=== PATIENT | male | born 1985 | race Caucasian/White ===

== ENCOUNTER 2016-06-08 06:49 | Emergency (ER) | payer OTHER ==
[~2016-06-08] VITALS: Ht 182.9 cm; Wt 61.4 kg
[2016-06-08 07:54] LABS: BASOPHILS # (AUTO) 0.01 K/uL (0.00-0.20); BASOPHILS % (AUTO) 0.2 % (0.0-2.0); EOSINOPHILS # (AUTO) 0.03 K/uL (0.00-0.70); EOSINOPHILS % (AUTO) 0.35 % (1.0-6.0); HEMATOCRIT 42.5 % (41-53); HEMOGLOBIN 14.4 g/dL (13.5-17.5); MEAN CORPUSCULAR HEMOGLOBIN 29.9 pg (26.0-34.0); MEAN CORPUSCULAR HGB CONC 33.8 G/dL (31.0-37.0); MEAN CORPUSCULAR VOLUME 88 fL (80-100); MONOCYTES # (AUTO) 0.4 K/uL (0.1-1.0); MONOCYTES % (AUTO) 4.9 % (2.0-9.0); NEUTROPHILS # (AUTO) 5.9 K/uL (1.8-7.7); NEUTROPHILS % (AUTO) 80.6 % (40.0-70.0); PLATELET COUNT (AUTO) 207 K/uL (150-450); RED BLOOD CELL COUNT(AUTO) 4.81 MIL/uL (4.50-5.90); RED CELL DISTRIBUTION WIDTH 12.7 % (11.5-14.5); WHITE BLOOD COUNT (AUTO) 7.4 K/uL (4.5-11.0)
[2016-06-08 08:04] LABS: ANION GAP 10 mmol/L (8-16); CALCIUM, TOTAL 8.5 mg/dL (8.8-10.5); CARBON DIOXIDE 29 mmol/L (22-29); CHLORIDE 104 mmol/L (98-107); CREATININE 1.13 mg/dL (0.60-1.30); GLOMERULAR FILTR. RATE CALC > 60 mL/min (>60); POTASSIUM 3.9 mmol/L (3.5-5.1); SODIUM SERUM 143 mmol/L (136-145); UREA NITROGEN, BLOOD 9 mg/dL (7-18)
[2016-06-08 08:10] LABS: ALANINE AMINOTRANSFERASE 23 U/L (12-78); ALBUMIN 4.5 g/dL (3.4-5.0); ASPARTATE AMINOTRANSFERASE 15 U/L (15-37); BILIRUBIN,TOTAL 0.9 mg/dL (0.1-1.0); TOTAL PROTEIN, SERUM 7.9 g/dL (6.4-8.2)
[2016-06-08] MEDS ORDERED: LORazepam 2 MG TABLET PO ONE (10:30)
[2016-06-08] MEDS ORDERED: HALOPERIDOL 5 MG TABLET PO ONE (10:30)
[2016-06-08 11:30] VITALS: BP 119/76
== END 2016-06-08 11:43 | disposition home or self-care (01) ==
LOC: EMS 06:50
DX: F41.9 Anxiety disorder, unspecified (principal); F12.10 Cannabis abuse, uncomplicated
CPT/HCPCS: 36415; 80053; 80307; 85025; 99284; G0480

== ENCOUNTER 2017-03-25 13:33 | Emergency (ER) | payer OTHER ==
[~2017-03-25] VITALS: Ht 180.3 cm; Wt 65.9 kg
[2017-03-25 14:18] LABS: GLUCOSE,POINT OF CARE 87 MG/DL (70-110)
[2017-03-25 16:35] LABS: BASOPHILS % (AUTO) 0.3 % (0.0-2.0); EOSINOPHILS % (AUTO) 1.2 % (1.0-6.0); HEMATOCRIT 44.1 % (41-53); HEMOGLOBIN 15.2 g/dL (13.5-17.5); LYMPHOCYTES % (AUTO) 28.4 % (22.0-44.0); MEAN CORPUSCULAR HEMOGLOBIN 30.2 pg (26.0-34.0); MEAN CORPUSCULAR HGB CONC 34.5 G/dL (31.0-37.0); MEAN CORPUSCULAR VOLUME 88 fL (80-100); MONOCYTES # (AUTO) 0.5 K/uL (0.1-1.0); MONOCYTES % (AUTO) 7.5 % (2.0-9.0); NEUTROPHILS # (AUTO) 4.4 K/uL (1.8-7.7); NEUTROPHILS % (AUTO) 62.6 % (40.0-70.0); PLATELET COUNT (AUTO) 214 K/uL (150-450); RED BLOOD CELL COUNT(AUTO) 5.02 MIL/uL (4.50-5.90); RED CELL DISTRIBUTION WIDTH 12.7 % (11.5-14.5)
[2017-03-25 16:51] LABS: ANION GAP 9 mmol/L (8-16); CALCIUM, TOTAL 9.2 mg/dL (8.8-10.5); CARBON DIOXIDE 30 mmol/L (22-29); CHLORIDE 104 mmol/L (98-107); CREATININE 0.91 mg/dL (0.60-1.30); GLOMERULAR FILTR. RATE CALC > 60 mL/min (>60); GLUCOSE,RANDOM 90 mg/dL (70-110); POTASSIUM 4.3 mmol/L (3.5-5.1); SODIUM SERUM 143 mmol/L (136-145); UREA NITROGEN, BLOOD 12 mg/dL (7-18)
[2017-03-25 16:57] LABS: ALANINE AMINOTRANSFERASE 23 U/L (12-78); ALBUMIN 4.2 g/dL (3.4-5.0); ALKALINE PHOSPHATASE 46 U/L (46-116); ASPARTATE AMINOTRANSFERASE 17 U/L (15-37); BILIRUBIN,TOTAL 1.1 mg/dL (0.1-1.0); TOTAL PROTEIN, SERUM 7.9 g/dL (6.4-8.2)
[2017-03-25 19:36] VITALS: BP 115/65
== END 2017-03-25 19:43 | disposition home or self-care (01) ==
LOC: EMS 13:36
DX: J11.1 Influenza due to unidentified influenza virus with other respiratory manifestations (principal); F12.90 Cannabis use, unspecified, uncomplicated
CPT/HCPCS: 71046; 82962; 99285

== ENCOUNTER 2017-06-10 21:20 | Inpatient (IN) | payer MEDICAID, OTHER ==
[~2017-06-10] VITALS: Ht 180.3 cm; Wt 63.8 kg
[2017-06-10 21:56] LABS: BASOPHILS % (AUTO) 0.4 % (0.0-2.0); EOSINOPHILS % (AUTO) 1.1 % (1.0-6.0); HEMATOCRIT 44.9 % (41-53); HEMOGLOBIN 15.1 g/dL (13.5-17.5); LYMPHOCYTES # (AUTO) 2.3 K/uL (1.0-4.8); LYMPHOCYTES % (AUTO) 28.9 % (22.0-44.0); MEAN CORPUSCULAR HEMOGLOBIN 30.3 pg (26.0-34.0); MEAN CORPUSCULAR HGB CONC 33.7 G/dL (31.0-37.0); MEAN CORPUSCULAR VOLUME 90 fL (80-100); MONOCYTES # (AUTO) 0.7 K/uL (0.1-1.0); NEUTROPHILS # (AUTO) 4.8 K/uL (1.8-7.7); NEUTROPHILS % (AUTO) 60.6 % (40.0-70.0); PLATELET COUNT (AUTO) 187 K/uL (150-450); RED CELL DISTRIBUTION WIDTH 13.7 % (11.5-14.5)
[2017-06-10 22:03] LABS: ANION GAP 8 mmol/L (8-16); CALCIUM, TOTAL 9.3 mg/dL (8.8-10.5); CARBON DIOXIDE 30 mmol/L (22-29); CHLORIDE 104 mmol/L (98-107); CREATININE 0.99 mg/dL (0.60-1.30); GLOMERULAR FILTR. RATE CALC > 60 mL/min (>60); GLUCOSE,RANDOM 95 mg/dL (70-110); SODIUM SERUM 142 mmol/L (136-145); UREA NITROGEN, BLOOD 13 mg/dL (7-18)
[2017-06-10 22:08] LABS: ALANINE AMINOTRANSFERASE 56 U/L (12-78); ALBUMIN 4.8 g/dL (3.4-5.0); ALKALINE PHOSPHATASE 58 U/L (46-116); ASPARTATE AMINOTRANSFERASE 62 U/L (15-37); BILIRUBIN,TOTAL 1.2 mg/dL (0.1-1.0); TOTAL PROTEIN, SERUM 7.8 g/dL (6.4-8.2)
[2017-06-10 22:29] LABS: AMPHET/METH SCREEN,URINE NEGATIVE (NEGATIVE); BARBITURATE SCREEN, URINE NEGATIVE (NEGATIVE); BENZODIAZEPINES SCREEN,URINE NEGATIVE (NEGATIVE); CANNABINOID SCREEN,URINE POSITIVE (NEGATIVE); COCAINE SCREEN,URINE NEGATIVE (NEGATIVE); METHADONE SCREEN, URINE NEGATIVE (NEGATIVE); OPIATE SCREEN,URINE NEGATIVE (NEGATIVE); PHENCYCLIDINE SCREEN,URINE NEGATIVE (NEGATIVE)
[2017-06-10] MEDS ORDERED: HALOPERIDOL 5 MG TABLET PO PRN (22:30)
[2017-06-10] MEDS ORDERED: ZOLPIDEM TARTRATE 10 MG TABLET PO PRN (22:30)
[2017-06-10] MEDS ORDERED: LORazepam 2 MG TABLET PO PRN (22:30)
[2017-06-10] MEDS ORDERED: LORazepam 2 MG/ML VIAL IM ONE (23:45)
[2017-06-10] MEDS ORDERED: DiphenhydrAMINE HCL 50 MG/ML VIAL IM ONE (23:45)
[2017-06-10] MEDS ORDERED: HALOPERIDOL LACTATE 5 MG/ML VIAL IM ONE (23:45)
[2017-06-11 03:00] LABS: CHOLESTEROL 188 mg/dL (131-200); HDL CHOLESTEROL 92 mg/dL (40-60); LDL CHOL (CALC.) 86 mg/dL (0-130); TRIGLYCERIDES 49 mg/dL (15-150)
[2017-06-12 01:46] VITALS: BP 132/88
[2017-06-12] MEDS ORDERED: INFLUENZA VIRUS VACCINE QVS 2017-18 (3YR+)/PF 60 MCG/0.5 ML SYRINGE IM ONE (02:00)
[2017-06-12 07:56] LABS: APPEARANCE,URINE CLEAR (CLEAR); BILIRUBIN,URINE NEGATIVE (NEGATIVE); GLUCOSE, URINE (UA) NEGATIVE (NEGATIVE); KETONES,URINE NEGATIVE (NEGATIVE); LEUKOCYTE ESTERASE ,URINE NEGATIVE (NEGATIVE); NITRATE,URINE NEGATIVE (NEGATIVE); OCCULT BLOOD,URINE NEGATIVE (NEGATIVE); PH,URINE 5.5 (5.0-8.0); PROTEIN,URINE NEGATIVE (NEGATIVE); UROBILINOGEN,URINE 0.2 mg/dL (<=1.0)
[2017-06-12 08:05] VITALS: BP 131/86
[2017-06-12 16:38] VITALS: BP 131/76
[2017-06-12] MEDS ORDERED: ONDANSETRON HCL 4 MG TABLET PO PRN (19:15)
[2017-06-12] MEDS ORDERED: IBUPROFEN 600 MG TABLET PO PRN (19:15)
[2017-06-12] MEDS ORDERED: ACETAMINOPHEN 325 MG TABLET PO PRN (19:15)
[2017-06-12] MEDS ORDERED: ALBUTEROL SULFATE HFA 90 MCG/PUFF 8 GM INHALER IH PRN (19:15)
[2017-06-12] MEDS ORDERED: CloNIDine HCL 0.1 MG TABLET PO PRN (19:15)
[2017-06-12] MEDS ORDERED: BENZOCAINE/MENTHOL LOZENGE [8 LOZENGES/PACKET] MM PRN (19:15)
[2017-06-12] MEDS ORDERED: LOPERAMIDE HCL 2 MG CAPSULE PO PRN (19:15)
[2017-06-12] MEDS ORDERED: MAG HYDROX/AL HYDROX/SIMETH ES 30 ML SUSPENSION UDCUP PO PRN (19:15)
[2017-06-12] MEDS ORDERED: MAGNESIUM HYDROXIDE SUSPENSION 30 ML UDCUP PO PRN (19:15)
[2017-06-12] MEDS ORDERED: PETROLATUM,WHITE 71 GM JELLY TP PRN (19:15)
[2017-06-12] MEDS ORDERED: BACITRACIN 28.4 GM OINTMENT TP PRN (19:15)
[2017-06-13 05:08] VITALS: BP 128/84
[2017-06-13] MEDS: CITALOPRAM HYDROBROMIDE 20 MG TABLET PO SCH (09:00)
[2017-06-13 09:06] VITALS: BP 122/65
[2017-06-13 16:12] VITALS: BP 117/63
[2017-06-14 04:10] VITALS: BP 122/79
[2017-06-14 08:45] VITALS: BP 141/91
[2017-06-14] MEDS: CITALOPRAM HYDROBROMIDE 20 MG TABLET PO SCH (08:49)
[2017-06-14 16:10] VITALS: BP 104/74
[2017-06-15 06:15] VITALS: BP 124/76
[2017-06-15] MEDS: CITALOPRAM HYDROBROMIDE 20 MG TABLET PO SCH (09:00)
[2017-06-15] MEDS: RisperiDONE 0.5 MG TABLET PO SCH ×2 (09:00→17:00)
[2017-06-15 09:40] VITALS: BP 109/73
[2017-06-15 16:59] VITALS: BP 106/78
[2017-06-16 00:51] VITALS: BP 128/76
[2017-06-16] MEDS: CITALOPRAM HYDROBROMIDE 20 MG TABLET PO SCH (09:00)
[2017-06-16] MEDS: RisperiDONE 0.5 MG TABLET PO SCH ×2 (09:00→16:13)
[2017-06-16 09:17] VITALS: BP 127/73
[2017-06-16 22:06] VITALS: BP 131/85
[2017-06-17 00:55] VITALS: BP 116/72
[2017-06-17 08:48] VITALS: BP 138/81
[2017-06-17] MEDS: RisperiDONE 0.5 MG TABLET PO SCH (09:00)
[2017-06-17] MEDS: CITALOPRAM HYDROBROMIDE 20 MG TABLET PO SCH (09:00)
[2017-06-17] MEDS ORDERED: RISP.5 PO (10:27)
[2017-06-17] MEDS ORDERED: CITA20TA9 PO (10:27)
== END 2017-06-17 15:25 | disposition home or self-care (01) | DRG 754 ==
LOC: EMS 21:21 → UNDOADMIN 22:48 → B2S 22:48 → 3EI 06-11 23:00
PROVIDERS: ADMIT Psychiatry & Neurology Psychiatry; ATTEND Psychiatry & Neurology Psychiatry
PROC: 3E0234Z Introduction of Serum, Toxoid and Vaccine into Muscle, Percutaneous Approach (ICD-10-PCS; principal; 2017-06-12)
DX: F32.9 Major depressive disorder, single episode, unspecified (principal); R45.851 Suicidal ideations; Z78.1 Physical restraint status; F22 Delusional disorders; F12.90 Cannabis use, unspecified, uncomplicated; F41.9 Anxiety disorder, unspecified; K59.00 Constipation, unspecified; F17.200 Nicotine dependence, unspecified, uncomplicated; G47.00 Insomnia, unspecified; Z91.14 Patient's other noncompliance with medication regimen; Z71.51 Drug abuse counseling and surveillance of drug abuser; Z23 Encounter for immunization; Z72.89 Other problems related to lifestyle; Z79.899 Other long term (current) drug therapy
CPT/HCPCS: 90471; 96372; 99285; G0480; J1200; J1630; J2060

== ENCOUNTER 2017-11-30 12:42 | Inpatient (IN) | payer MEDICAID, OTHER ==
[~2017-11-30] VITALS: Ht 180.3 cm; Wt 66.0 kg
[~2017-11-30 12:42] MED LIST: CITA-106 PO; RISP.5 PO
[2017-11-30 13:33] LABS: BASOPHILS % (AUTO) 0.4 % (0.0-2.0); HEMATOCRIT 41.6 % (41-53); HEMOGLOBIN 14.3 g/dL (13.5-17.5); LYMPHOCYTES # (AUTO) 1.8 K/uL (1.0-4.8); LYMPHOCYTES % (AUTO) 28.7 % (22.0-44.0); MEAN CORPUSCULAR HEMOGLOBIN 30.5 pg (26.0-34.0); MEAN CORPUSCULAR HGB CONC 34.4 G/dL (31.0-37.0); MEAN CORPUSCULAR VOLUME 89 fL (80-100); MONOCYTES # (AUTO) 0.5 K/uL (0.1-1.0); MONOCYTES % (AUTO) 8.5 % (2.0-9.0); NEUTROPHILS # (AUTO) 3.8 K/uL (1.8-7.7); NEUTROPHILS % (AUTO) 61.4 % (40.0-70.0); PLATELET COUNT (AUTO) 205 K/uL (150-450); RED BLOOD CELL COUNT(AUTO) 4.69 MIL/uL (4.50-5.90); RED CELL DISTRIBUTION WIDTH 12.6 % (11.5-14.5)
[2017-11-30 13:51] LABS: ANION GAP 11 mmol/L (8-16); CALCIUM, TOTAL 9.2 mg/dL (8.8-10.5); CARBON DIOXIDE 26 mmol/L (22-29); CHLORIDE 103 mmol/L (98-107); CREATININE 1.25 mg/dL (0.60-1.30); GLOMERULAR FILTR. RATE CALC > 60 mL/min (>60); GLUCOSE,RANDOM 114 mg/dL (70-110); POTASSIUM 3.4 mmol/L (3.5-5.1); SODIUM SERUM 140 mmol/L (136-145); UREA NITROGEN, BLOOD 14 mg/dL (7-18)
[2017-11-30 13:58] LABS: ALANINE AMINOTRANSFERASE 20 U/L (12-78); ALBUMIN 4.2 g/dL (3.4-5.0); ALKALINE PHOSPHATASE 53 U/L (46-116); ASPARTATE AMINOTRANSFERASE 29 U/L (15-37); BILIRUBIN,TOTAL 0.9 mg/dL (0.1-1.0); TOTAL PROTEIN, SERUM 7.3 g/dL (6.4-8.2)
[2017-11-30] MEDS ORDERED: LORazepam 2 MG/ML VIAL IM ONE (14:15)
[2017-11-30] MEDS ORDERED: DiphenhydrAMINE HCL 50 MG/ML VIAL IM ONE (14:15)
[2017-11-30] MEDS ORDERED: HALOPERIDOL LACTATE 5 MG/ML VIAL IM ONE (14:15)
[2017-11-30] MEDS ORDERED: LOPERAMIDE HCL 2 MG CAPSULE PO PRN (16:30)
[2017-11-30] MEDS ORDERED: PROMETHAZINE HCL 25 MG TABLET PO PRN (16:30)
[2017-11-30] MEDS ORDERED: MAG HYDROX/AL HYDROX/SIMETH ES 30 ML SUSPENSION UDCUP PO PRN (16:30)
[2017-11-30] MEDS ORDERED: HydrOXYzine PAMOATE 50 MG CAPSULE PO PRN (16:30)
[2017-11-30] MEDS ORDERED: ZOLPIDEM TARTRATE 10 MG TABLET PO PRN (16:30)
[2017-11-30] MEDS ORDERED: GuaiFENesin/D-METHORPHAN [SUGAR-FREE] 200-20MG/10 ML SYRUP UDCUP PO PRN (16:30)
[2017-11-30] MEDS ORDERED: TUBERCULIN, PURIFIED PROTEIN DERIVATIVE 5 TU/0.1 ML SYG ID ONE (16:30)
[2017-11-30] MEDS ORDERED: QUEtiapine FUMARATE 100 MG TABLET PO PRN (16:30)
[2017-11-30] MEDS ORDERED: ACETAMINOPHEN 325 MG TABLET PO PRN (16:30)
[2017-11-30] MEDS ORDERED: POTASSIUM CHLORIDE 20 MEQ ER TABLET PO ONE (17:00)
[2017-11-30] MEDS: THIAMINE HCL 100 MG TABLET PO SCH (18:26)
[2017-11-30 18:28] VITALS: BP 110/75
[2017-11-30] MEDS ORDERED: QUEtiapine FUMARATE 100 MG TABLET PO SCH (21:00)
[2017-12-01 07:08] VITALS: BP 111/69
[2017-12-01 08:16] VITALS: BP 112/67
[2017-12-01] MEDS ORDERED: PARoxetine HCL 20 MG TABLET PO SCH (09:00)
[2017-12-01] MEDS: NALTREXONE HCL 50 MG TABLET PO SCH (09:07)
[2017-12-01] MEDS: THIAMINE HCL 100 MG TABLET PO SCH ×2 (09:07→16:44)
[2017-12-01] MEDS: FOLIC ACID 1 MG TABLET PO SCH (09:07)
[2017-12-01] MEDS: MULTIVITAMINS WITH MINERALS, THERAPEUTIC TABLET PO SCH (09:07)
[2017-12-01 09:14] LABS: BASOPHILS % (AUTO) 0.5 % (0.0-2.0); EOSINOPHILS % (AUTO) 2.5 % (1.0-6.0); HEMATOCRIT 45.9 % (41-53); HEMOGLOBIN 15.6 g/dL (13.5-17.5); LYMPHOCYTES # (AUTO) 3.7 K/uL (1.0-4.8); LYMPHOCYTES % (AUTO) 47.6 % (22.0-44.0); MEAN CORPUSCULAR HEMOGLOBIN 30.5 pg (26.0-34.0); MEAN CORPUSCULAR HGB CONC 33.9 G/dL (31.0-37.0); MEAN CORPUSCULAR VOLUME 90 fL (80-100); MONOCYTES # (AUTO) 0.8 K/uL (0.1-1.0); MONOCYTES % (AUTO) 9.8 % (2.0-9.0); NEUTROPHILS # (AUTO) 3.1 K/uL (1.8-7.7); NEUTROPHILS % (AUTO) 39.6 % (40.0-70.0); PLATELET COUNT (AUTO) 216 K/uL (150-450); RED CELL DISTRIBUTION WIDTH 12.8 % (11.5-14.5)
[2017-12-01 09:47] LABS: ALANINE AMINOTRANSFERASE 19 U/L (12-78); ALBUMIN 4.2 g/dL (3.4-5.0); ALKALINE PHOSPHATASE 46 U/L (46-116); ANION GAP 8 mmol/L (8-16); ASPARTATE AMINOTRANSFERASE 39 U/L (15-37); BILIRUBIN,TOTAL 1.1 mg/dL (0.1-1.0); CALCIUM, TOTAL 9.2 mg/dL (8.8-10.5); CARBON DIOXIDE 27 mmol/L (22-29); CHLORIDE 107 mmol/L (98-107); CREATININE 1.17 mg/dL (0.60-1.30); FREE T4 (FREE THYROXINE) 1.08 ng/dL (0.76-1.46); GLOMERULAR FILTR. RATE CALC > 60 mL/min (>60); GLUCOSE,RANDOM 70 mg/dL (70-110); POTASSIUM 4.1 mmol/L (3.5-5.1); SODIUM SERUM 142 mmol/L (136-145); THYROID STIMULATING HORMONE 1.05 uIU/mL (0.36-3.74); TOTAL PROTEIN, SERUM 7.4 g/dL (6.4-8.2); UREA NITROGEN, BLOOD 12 mg/dL (7-18)
[2017-12-01] MEDS ORDERED: HALOPERIDOL 5 MG TABLET PO PRN (15:30)
[2017-12-01 16:26] VITALS: BP 134/80
[2017-12-01] MEDS: BENZTROPINE MESYLATE 0.5 MG TABLET PO SCH ×2 (16:43→20:14)
[2017-12-01] MEDS: HALOPERIDOL 1 MG TABLET PO SCH ×2 (16:44→20:14)
[2017-12-02 04:29] VITALS: BP 134/85
[2017-12-02 08:04] VITALS: BP 122/68
[2017-12-02] MEDS: MULTIVITAMINS WITH MINERALS, THERAPEUTIC TABLET PO SCH (08:31)
[2017-12-02] MEDS: NALTREXONE HCL 50 MG TABLET PO SCH (08:31)
[2017-12-02] MEDS: THIAMINE HCL 100 MG TABLET PO SCH ×2 (08:31→16:58)
[2017-12-02] MEDS: FOLIC ACID 1 MG TABLET PO SCH (08:31)
[2017-12-02] MEDS: BENZTROPINE MESYLATE 0.5 MG TABLET PO SCH ×2 (08:31→12:16)
[2017-12-02] MEDS: HALOPERIDOL 1 MG TABLET PO SCH ×2 (08:32→12:16)
[2017-12-02 09:35] LABS: CHOL/HDL RATIO 2.9 (4.2-7.3); THYROID STIMULATING HORMONE 0.69 uIU/mL (0.36-3.74)
[2017-12-02] MEDS: LORazepam 2 MG TABLET PO PRN ×2 (12:16→16:59)
[2017-12-02 16:00] VITALS: BP 106/75
[2017-12-02] MEDS ORDERED: HALOPERIDOL DECANOATE 50 MG/ML VIAL IM ONE (16:30)
[2017-12-02] MEDS: BENZTROPINE MESYLATE 1 MG TABLET PO SCH (16:58)
[2017-12-02] MEDS ORDERED: HALOPERIDOL 5 MG TABLET PO SCH (21:00)
[2017-12-02] MEDS ORDERED: HALOPERIDOL 1 MG TABLET PO SCH (21:00)
[2017-12-03 06:13] VITALS: BP 117/78
[2017-12-03] MEDS: FOLIC ACID 1 MG TABLET PO SCH (08:02)
[2017-12-03] MEDS: BENZTROPINE MESYLATE 1 MG TABLET PO SCH ×3 (08:02→16:00)
[2017-12-03] MEDS: MULTIVITAMINS WITH MINERALS, THERAPEUTIC TABLET PO SCH (08:02)
[2017-12-03] MEDS: THIAMINE HCL 100 MG TABLET PO SCH ×2 (08:02→16:00)
[2017-12-03] MEDS: NALTREXONE HCL 50 MG TABLET PO SCH (08:02)
[2017-12-03 08:04] VITALS: BP 124/64
[2017-12-03] MEDS ORDERED: BENZ1TAB10 PO (14:34)
[2017-12-03] MEDS ORDERED: NALT50TA PO (14:34)
[2017-12-03] MEDS ORDERED: HALO50VI4 IM (14:34)
[2017-12-03] MEDS ORDERED: THIA100T67 PO (16:17)
[2017-12-03] MEDS ORDERED: FOLI1 PO (16:18)
[2017-12-03] MEDS ORDERED: MULT-1203 PO (16:18)
[2017-12-03] MEDS ORDERED: VITAD1000 PO (16:19)
[2018-01-01] MEDS ORDERED: HALOPERIDOL DECANOATE 50 MG/ML VIAL IM SCH (09:00)
== END 2017-12-03 18:00 | disposition home or self-care (01) | DRG 751 ==
LOC: EMS 12:45 → B3A 17:04
PROVIDERS: ADMIT Psychiatry & Neurology Psychiatry; ATTEND Psychiatry & Neurology Psychiatry
DX: F33.3 Major depressive disorder, recurrent, severe with psychotic symptoms (principal); R45.851 Suicidal ideations; F95.2 Tourette's disorder; F12.10 Cannabis abuse, uncomplicated; F17.200 Nicotine dependence, unspecified, uncomplicated; F41.9 Anxiety disorder, unspecified; F90.9 Attention-deficit hyperactivity disorder, unspecified type; G47.00 Insomnia, unspecified; Z78.1 Physical restraint status; Z91.19 Patient's noncompliance with other medical treatment and regimen; Z72.89 Other problems related to lifestyle; Z71.41 Alcohol abuse counseling and surveillance of alcoholic; Z71.51 Drug abuse counseling and surveillance of drug abuser
CPT/HCPCS: 80074; 82306; 84439; 84443; 86592; 96372; 99285; G0480; J1200; J1630; J1631; J2060

== ENCOUNTER 2018-04-05 03:37 | Inpatient (IN) | payer MEDICAID, OTHER ==
[~2018-04-05] VITALS: Ht 182.9 cm; Wt 68.6 kg
[~2018-04-05 03:37] MED LIST changes: +BENZ1TAB10 PO; -CITA-106 PO; +FOLI1 PO; +HALO50VI4 IM; +MULT-1203 PO; +NALT50TA PO; -RISP.5 PO; +THIA100T67 PO; +VITAD1000 PO
[2018-04-05 08:13] LABS: BASOPHILS % (AUTO) 0.3 % (0.0-2.0); EOSINOPHILS % (AUTO) 0.9 % (1.0-6.0); HEMATOCRIT 44.3 % (41-53); HEMOGLOBIN 15.3 g/dL (13.5-17.5); LYMPHOCYTES # (AUTO) 2.7 K/uL (1.0-4.8); LYMPHOCYTES % (AUTO) 27.8 % (22.0-44.0); MEAN CORPUSCULAR HEMOGLOBIN 30.6 pg (26.0-34.0); MEAN CORPUSCULAR HGB CONC 34.6 G/dL (31.0-37.0); MEAN CORPUSCULAR VOLUME 88 fL (80-100); MONOCYTES # (AUTO) 0.7 K/uL (0.1-1.0); MONOCYTES % (AUTO) 7.5 % (2.0-9.0); NEUTROPHILS # (AUTO) 6.2 K/uL (1.8-7.7); NEUTROPHILS % (AUTO) 63.5 % (40.0-70.0); PLATELET COUNT (AUTO) 235 K/uL (150-450); RED BLOOD CELL COUNT(AUTO) 5.01 MIL/uL (4.50-5.90)
[2018-04-05 08:40] LABS: AMPHET/METH SCREEN,URINE NEGATIVE (NEGATIVE); BARBITURATE SCREEN, URINE NEGATIVE (NEGATIVE); BENZODIAZEPINES SCREEN,URINE NEGATIVE (NEGATIVE); CANNABINOID SCREEN,URINE POSITIVE (NEGATIVE); COCAINE SCREEN,URINE NEGATIVE (NEGATIVE); METHADONE SCREEN, URINE NEGATIVE (NEGATIVE); OPIATE SCREEN,URINE NEGATIVE (NEGATIVE); PHENCYCLIDINE SCREEN,URINE NEGATIVE (NEGATIVE)
[2018-04-05 08:41] LABS: ANION GAP 12 mmol/L (8-16); CARBON DIOXIDE 26 mmol/L (22-29); CHLORIDE 104 mmol/L (98-107); CREATININE 0.96 mg/dL (0.60-1.30); GLOMERULAR FILTR. RATE CALC > 60 mL/min (>60); GLUCOSE,RANDOM 88 mg/dL (70-110); POTASSIUM 3.4 mmol/L (3.5-5.1); SODIUM SERUM 142 mmol/L (136-145); UREA NITROGEN, BLOOD 13 mg/dL (7-18)
[2018-04-05 08:46] LABS: ALANINE AMINOTRANSFERASE 16 U/L (12-78); ALBUMIN 4.2 g/dL (3.4-5.0); ALKALINE PHOSPHATASE 59 U/L (46-116); ASPARTATE AMINOTRANSFERASE 15 U/L (15-37); BILIRUBIN,TOTAL 0.4 mg/dL (0.1-1.0); TOTAL PROTEIN, SERUM 7.6 g/dL (6.4-8.2)
[2018-04-05] MEDS ORDERED: HALOPERIDOL 5 MG TABLET PO PRN (11:00)
[2018-04-05] MEDS ORDERED: HALOPERIDOL DECANOATE 50 MG/ML VIAL IM ONE (11:00)
[2018-04-05] MEDS ORDERED: ACETAMINOPHEN 325 MG TABLET PO PRN (11:00)
[2018-04-05] MEDS ORDERED: GuaiFENesin/D-METHORPHAN [SUGAR-FREE] 200-20MG/10 ML SYRUP UDCUP PO PRN (11:00)
[2018-04-05] MEDS ORDERED: MAG HYDROX/AL HYDROX/SIMETH ES 30 ML SUSPENSION UDCUP PO PRN (11:00)
[2018-04-05] MEDS ORDERED: MAGNESIUM HYDROXIDE SUSPENSION 30 ML UDCUP PO PRN (11:00)
[2018-04-05] MEDS ORDERED: LOPERAMIDE HCL 2 MG CAPSULE PO PRN (11:00)
[2018-04-05] MEDS ORDERED: PROMETHAZINE HCL 25 MG TABLET PO PRN (11:00)
[2018-04-05] MEDS ORDERED: HydrOXYzine PAMOATE 50 MG CAPSULE PO PRN (11:00)
[2018-04-05] MEDS ORDERED: BENZ2TAB10 PO (11:17)
[2018-04-05] MEDS: BENZTROPINE MESYLATE 2 MG TABLET PO SCH (20:44)
[2018-04-05] MEDS: THIAMINE HCL 100 MG TABLET PO SCH (20:45)
[2018-04-05] MEDS ORDERED: HALOPERIDOL 10 MG TABLET PO SCH (21:00)
[2018-04-05] MEDS: LORazepam 2 MG TABLET PO PRN (21:48)
[2018-04-06] MEDS ORDERED: POTASSIUM CHLORIDE 10% 40 MEQ/30 ML LIQUID UDCUP PO ONE
[2018-04-06 03:59] VITALS: BP 125/83
[2018-04-06] MEDS: THIAMINE HCL 100 MG TABLET PO SCH ×2 (09:38→16:22)
[2018-04-06] MEDS: NALTREXONE HCL 50 MG TABLET PO SCH (09:38)
[2018-04-06] MEDS: MULTIVITAMINS WITH MINERALS, THERAPEUTIC TABLET PO SCH (09:38)
[2018-04-06] MEDS: BENZTROPINE MESYLATE 2 MG TABLET PO SCH (09:38)
[2018-04-06] MEDS: FOLIC ACID 1 MG TABLET PO SCH (09:38)
[2018-04-06 10:11] VITALS: BP 97/66
[2018-04-06] MEDS ORDERED: PALIPERIDONE PALMITATE 234 MG/1.5 ML SYRINGE IM ONE (14:30)
[2018-04-06] MEDS ORDERED: PALIPERIDONE 1.5 MG ER TABLET PO PRN (14:30)
[2018-04-06 16:30] VITALS: BP 142/77
[2018-04-06] MEDS: PALIPERIDONE 3 MG ER TABLET PO SCH (20:31)
[2018-04-07 02:40] VITALS: BP 123/68
[2018-04-07] MEDS: ZOLPIDEM TARTRATE 10 MG TABLET PO PRN (02:44)
[2018-04-07 08:42] VITALS: BP 127/66
[2018-04-07] MEDS ORDERED: BENZOCAINE/MENTHOL LOZENGE MM PRN (09:00)
[2018-04-07] MEDS ORDERED: ONDANSETRON HCL 4 MG TABLET PO PRN (09:00)
[2018-04-07] MEDS ORDERED: PETROLATUM,WHITE 71 GM JELLY TP PRN (09:00)
[2018-04-07] MEDS: DOCUSATE SODIUM 100 MG CAPSULE PO SCH (09:00)
[2018-04-07] MEDS ORDERED: BACITRACIN 28.4 GM OINTMENT TP PRN (09:00)
[2018-04-07] MEDS ORDERED: IBUPROFEN 600 MG TABLET PO PRN (09:00)
[2018-04-07] MEDS ORDERED: CloNIDine HCL 0.1 MG TABLET PO PRN (09:00)
[2018-04-07] MEDS ORDERED: ALBUTEROL SULFATE HFA 90 MCG/PUFF 8 GM INHALER IH PRN (09:00)
[2018-04-07] MEDS: MULTIVITAMINS WITH MINERALS, THERAPEUTIC TABLET PO SCH (09:02)
[2018-04-07] MEDS: FOLIC ACID 1 MG TABLET PO SCH (09:02)
[2018-04-07] MEDS: THIAMINE HCL 100 MG TABLET PO SCH ×2 (09:03→16:10)
[2018-04-07] MEDS: NALTREXONE HCL 50 MG TABLET PO SCH (09:03)
[2018-04-07] MEDS ORDERED: OLANZapine 5 MG RAPDIS TABLET PO PRN (13:30)
[2018-04-07] MEDS: LORazepam 2 MG TABLET PO PRN (13:45)
[2018-04-07 17:00] VITALS: BP 107/73
[2018-04-07] MEDS: PALIPERIDONE 3 MG ER TABLET PO SCH (20:43)
[2018-04-08 00:18] VITALS: BP 143/96
[2018-04-08 01:15] VITALS: BP 136/90
[2018-04-08 08:11] VITALS: BP 126/91
[2018-04-08] MEDS: MULTIVITAMINS WITH MINERALS, THERAPEUTIC TABLET PO SCH (08:18)
[2018-04-08] MEDS: DOCUSATE SODIUM 100 MG CAPSULE PO SCH (08:18)
[2018-04-08] MEDS: FOLIC ACID 1 MG TABLET PO SCH (08:18)
[2018-04-08] MEDS: NALTREXONE HCL 50 MG TABLET PO SCH (08:18)
[2018-04-08] MEDS: THIAMINE HCL 100 MG TABLET PO SCH ×2 (08:19→17:22)
[2018-04-08] MEDS: LORazepam 2 MG TABLET PO PRN (08:27)
[2018-04-08] MEDS ORDERED: PIMOZIDE 2 MG TABLET PO SCH (09:00)
[2018-04-08 16:31] VITALS: BP 115/70
[2018-04-08] MEDS ORDERED: NALT50TA PO (17:07)
[2018-04-08] MEDS ORDERED: PIMO2TAB PO (17:07)
[2018-04-08] MEDS: PALIPERIDONE 3 MG ER TABLET PO SCH (20:14)
[2018-04-09] MEDS: ZOLPIDEM TARTRATE 10 MG TABLET PO PRN (00:12)
[2018-04-09 00:13] VITALS: BP 128/73
[2018-04-09] MEDS: NALTREXONE HCL 50 MG TABLET PO SCH (08:52)
[2018-04-09] MEDS: FOLIC ACID 1 MG TABLET PO SCH (08:52)
[2018-04-09] MEDS: THIAMINE HCL 100 MG TABLET PO SCH (08:55)
[2018-04-09] MEDS: DOCUSATE SODIUM 100 MG CAPSULE PO SCH (08:56)
[2018-04-09] MEDS: MULTIVITAMINS WITH MINERALS, THERAPEUTIC TABLET PO SCH (08:59)
[2018-04-09] MEDS ORDERED: PIMOZIDE 2 MG TABLET PO SCH (09:00)
[2018-04-09 09:06] VITALS: BP 119/75
[2018-04-09] MEDS: LORazepam 2 MG TABLET PO PRN (09:24)
[2018-04-09] MEDS ORDERED: DSS100 PO (10:35)
[2018-04-10] MEDS ORDERED: PALIPERIDONE PALMITATE 156 MG/ML SYRINGE IM ONE (09:00)
[2018-04-19] MEDS ORDERED: HALOPERIDOL DECANOATE 50 MG/ML VIAL IM SCH (09:00)
== END 2018-04-09 11:40 | disposition home or self-care (01) | DRG 751 ==
LOC: EMS 03:38 → 3EI 22:00
PROVIDERS: ADMIT Psychiatry & Neurology Psychiatry; ATTEND Psychiatry & Neurology Psychiatry
DX: F33.3 Major depressive disorder, recurrent, severe with psychotic symptoms (principal); R45.851 Suicidal ideations; F95.2 Tourette's disorder; F12.90 Cannabis use, unspecified, uncomplicated; F17.210 Nicotine dependence, cigarettes, uncomplicated; F41.9 Anxiety disorder, unspecified; F90.9 Attention-deficit hyperactivity disorder, unspecified type; G47.00 Insomnia, unspecified; Z81.8 Family history of other mental and behavioral disorders; Z91.19 Patient's noncompliance with other medical treatment and regimen; Z91.5 Personal history of self-harm; Z56.0 Unemployment, unspecified; Z72.89 Other problems related to lifestyle
CPT/HCPCS: G0480; J1631

== ENCOUNTER 2019-07-20 17:12 | Inpatient (IN) | payer MEDICAID, OTHER ==
[~2019-07-20] VITALS: Ht 182.9 cm; Wt 61.8 kg
[~2019-07-20 17:12] MED LIST changes: -BENZ1TAB10 PO; +DSS100 PO; -HALO50VI4 IM; +PIMO2TAB PO; -VITAD1000 PO
[2019-07-20 19:08] LABS: BASOPHILS % (AUTO) 0.3 % (0.0-2.0); EOSINOPHILS % (AUTO) 0.8 % (1.0-6.0); HEMATOCRIT 43.4 % (41-53); HEMOGLOBIN 14.1 g/dL (13.5-17.5); LYMPHOCYTES # (AUTO) 1.8 K/uL (1.0-4.8); LYMPHOCYTES % (AUTO) 20.7 % (22.0-44.0); MEAN CORPUSCULAR HEMOGLOBIN 29.4 pg (26.0-34.0); MEAN CORPUSCULAR HGB CONC 32.4 G/dL (31.0-37.0); MEAN CORPUSCULAR VOLUME 91 fL (80-100); MONOCYTES # (AUTO) 0.7 K/uL (0.1-1.0); MONOCYTES % (AUTO) 7.5 % (2.0-9.0); NEUTROPHILS # (AUTO) 6.2 K/uL (1.8-7.7); NEUTROPHILS % (AUTO) 70.7 % (40.0-70.0); PLATELET COUNT (AUTO) 227 K/uL (150-450); RED BLOOD CELL COUNT(AUTO) 4.79 MIL/uL (4.50-5.90); RED CELL DISTRIBUTION WIDTH 13.4 % (11.5-14.5)
[2019-07-20 19:21] LABS: ANION GAP 10 mmol/L (8-16); CALCIUM, TOTAL 9.1 mg/dL (8.8-10.5); CARBON DIOXIDE 27 mmol/L (22-29); CHLORIDE 106 mmol/L (98-107); CREATININE 0.88 mg/dL (0.60-1.30); GLOMERULAR FILTR. RATE CALC > 60 mL/min (>60); GLUCOSE,RANDOM 91 mg/dL (70-110); POTASSIUM 4.2 mmol/L (3.5-5.1); SODIUM SERUM 143 mmol/L (136-145); UREA NITROGEN, BLOOD 8 mg/dL (7-18)
[2019-07-20 19:26] LABS: ALANINE AMINOTRANSFERASE 49 U/L (12-78); ALBUMIN 4.7 g/dL (3.4-5.0); ALKALINE PHOSPHATASE 51 U/L (46-116); ASPARTATE AMINOTRANSFERASE 32 U/L (15-37); BILIRUBIN,TOTAL 0.5 mg/dL (0.1-1.0); TOTAL PROTEIN, SERUM 7.9 g/dL (6.4-8.2)
[2019-07-20 20:16] LABS: AMPHET/METH SCREEN,URINE NEGATIVE (NEGATIVE); BARBITURATE SCREEN, URINE NEGATIVE (NEGATIVE); BENZODIAZEPINES SCREEN,URINE NEGATIVE (NEGATIVE); CANNABINOID SCREEN,URINE POSITIVE (NEGATIVE); COCAINE SCREEN,URINE NEGATIVE (NEGATIVE); METHADONE SCREEN, URINE NEGATIVE (NEGATIVE); OPIATE SCREEN,URINE NEGATIVE (NEGATIVE); PHENCYCLIDINE SCREEN,URINE NEGATIVE (NEGATIVE)
[2019-07-20] MEDS ORDERED: ZOLPIDEM TARTRATE 10 MG TABLET PO PRN (23:00)
[2019-07-20] MEDS ORDERED: LORazepam 2 MG TABLET PO PRN (23:00)
[2019-07-20] MEDS ORDERED: HALOPERIDOL 5 MG TABLET PO PRN (23:00)
[2019-07-21 01:44] VITALS: BP 118/76
[2019-07-21] MEDS ORDERED: ONDANSETRON HCL 4 MG TABLET PO PRN (05:30)
[2019-07-21] MEDS ORDERED: MAGNESIUM HYDROXIDE SUSPENSION 30 ML UDCUP PO PRN (05:30)
[2019-07-21] MEDS ORDERED: CloNIDine HCL 0.1 MG TABLET PO PRN (05:30)
[2019-07-21] MEDS ORDERED: MAG HYDROX/AL HYDROX/SIMETH ES 30 ML SUSPENSION UDCUP PO PRN (05:30)
[2019-07-21] MEDS ORDERED: BACITRACIN 28.4 GM OINTMENT TP PRN (05:30)
[2019-07-21] MEDS ORDERED: IBUPROFEN 600 MG TABLET PO PRN (05:30)
[2019-07-21] MEDS ORDERED: LOPERAMIDE HCL 2 MG CAPSULE PO PRN (05:30)
[2019-07-21] MEDS ORDERED: BENZOCAINE/MENTHOL LOZENGE MM PRN (05:30)
[2019-07-21] MEDS ORDERED: ALBUTEROL SULFATE HFA 90 MCG/PUFF 8 GM INHALER IH PRN (05:30)
[2019-07-21] MEDS ORDERED: PETROLATUM,WHITE 28 GM JELLY TP PRN (05:30)
[2019-07-21] MEDS ORDERED: ACETAMINOPHEN 325 MG TABLET PO PRN (05:30)
[2019-07-21 08:11] VITALS: BP 126/68
[2019-07-21 09:44] LABS: CHOL/HDL RATIO 2.6 (4.2-7.3)
[2019-07-21] MEDS: DOCUSATE SODIUM 100 MG CAPSULE PO SCH (09:59)
[2019-07-21] MEDS: OMEPRAZOLE 20 MG CAPSULE PO SCH (09:59)
[2019-07-21 16:05] VITALS: BP 123/95
[2019-07-21] MEDS ORDERED: LORazepam 2 MG/ML VIAL IM ONE (16:30)
[2019-07-21] MEDS ORDERED: HALOPERIDOL LACTATE 5 MG/ML VIAL IM ONE (16:30)
[2019-07-21] MEDS ORDERED: DiphenhydrAMINE HCL 50 MG/ML VIAL IM ONE (16:30)
[2019-07-21] MEDS: RisperiDONE 3 MG TABLET PO SCH (17:00)
[2019-07-22 06:19] VITALS: BP 129/100
[2019-07-22 08:41] VITALS: BP 109/56
[2019-07-22] MEDS: OMEPRAZOLE 20 MG CAPSULE PO SCH (09:00)
[2019-07-22] MEDS: DOCUSATE SODIUM 100 MG CAPSULE PO SCH (09:00)
[2019-07-22] MEDS: RisperiDONE 3 MG TABLET PO SCH ×2 (09:54→16:14)
[2019-07-22 16:10] VITALS: BP 121/73
[2019-07-23 04:23] VITALS: BP 128/90
[2019-07-23] MEDS: RisperiDONE 3 MG TABLET PO SCH ×2 (08:52→16:09)
[2019-07-23] MEDS: DOCUSATE SODIUM 100 MG CAPSULE PO SCH (08:52)
[2019-07-23] MEDS: OMEPRAZOLE 20 MG CAPSULE PO SCH (08:52)
[2019-07-23 09:42] VITALS: BP 140/98
[2019-07-23 16:00] VITALS: BP 140/81
[2019-07-24] VITALS: BP_SYST 102; BP_SYST 116; BP_DIAS 57; BP_DIAS 70
[2019-07-24] MEDS ORDERED: OMEP20 PO (07:59)
[2019-07-24] MEDS ORDERED: RISP3 PO (07:59)
[2019-07-24 08:40] VITALS: BP 120/76
[2019-07-24] MEDS: OMEPRAZOLE 20 MG CAPSULE PO SCH (08:54)
[2019-07-24] MEDS: DOCUSATE SODIUM 100 MG CAPSULE PO SCH (08:54)
[2019-07-24] MEDS: RisperiDONE 3 MG TABLET PO SCH (08:54)
== END 2019-07-24 13:15 | disposition home or self-care (01) | DRG 750 ==
LOC: EMS 17:22 → B3A 23:30 → B2S 07-23 16:06 → B3A 07-23 16:54
PROVIDERS: ADMIT Psychiatry & Neurology Psychiatry; ATTEND Psychiatry & Neurology Psychiatry
DX: F25.0 Schizoaffective disorder, bipolar type (principal); R45.851 Suicidal ideations; F95.2 Tourette's disorder; F12.90 Cannabis use, unspecified, uncomplicated; F41.9 Anxiety disorder, unspecified; F32.9 Major depressive disorder, single episode, unspecified; G93.9 Disorder of brain, unspecified; F90.9 Attention-deficit hyperactivity disorder, unspecified type; G47.00 Insomnia, unspecified; F17.200 Nicotine dependence, unspecified, uncomplicated; Z72.89 Other problems related to lifestyle
CPT/HCPCS: G0480; J1200; J1630; J2060

== ENCOUNTER 2019-11-19 06:11 | Emergency (ER) | payer MEDICAID, OTHER ==
[~2019-11-19] VITALS: Ht 180.3 cm; Wt 65.9 kg
[~2019-11-19 06:11] MED LIST changes: -DSS100 PO; -FOLI1 PO; -MULT-1203 PO; -NALT50TA PO; +OMEP20 PO; -PIMO2TAB PO; +RISP3TAB14 PO; -THIA100T67 PO
[2019-11-19] MEDS ORDERED: SULFAMETHOX/TRIMETH DS 800-160 MG/TABLET PO ONE (07:30)
[2019-11-19] MEDS ORDERED: DiphenhydrAMINE HCL 25 MG CAPSULE PO ONE (07:30)
[2019-11-19] MEDS ORDERED: AMOXICILLIN TRIHYDRATE 250 MG CAPSULE PO ONE (07:30)
[2019-11-19] MEDS ORDERED: FLUORESCEIN SODIUM 1 MG STRIP OD ONE (07:45)
[2019-11-19] MEDS ORDERED: PROPARACAINE HCL 0.5% 15 ML OPHTHALMIC SOLUTION OD ONE (07:45)
[2019-11-19 08:00] VITALS: BP 109/79
== END 2019-11-19 08:30 | disposition home or self-care (01) ==
LOC: EMS 06:11
DX: H00.031 Abscess of right upper eyelid (principal); F41.9 Anxiety disorder, unspecified; F31.9 Bipolar disorder, unspecified; F12.90 Cannabis use, unspecified, uncomplicated
CPT/HCPCS: Z7502; Z7610

== ENCOUNTER 2023-08-31 16:06 | Emergency (ER) | payer OTHER ==
[~2023-08-31] VITALS: Ht 180.3 cm; Wt 82.0 kg
[~2023-08-31 16:06] MED LIST changes: -RISP3TAB14 PO; +RISP3TAB35 PO
[2023-08-31 16:08] VITALS: TEMP 98.3
[2023-08-31 16:51] LABS: BASOPHILS % (AUTO) 0.2 % (0.0-2.0); EOSINOPHILS % (AUTO) 0.4 % (1.0-6.0); HEMATOCRIT 43.8 % (41-53); HEMOGLOBIN 14.6 g/dL (13.5-17.5); LYMPHOCYTES # (AUTO) 1.6 K/uL (1.0-4.8); LYMPHOCYTES % (AUTO) 9.6 % (22.0-44.0); MEAN CORPUSCULAR HEMOGLOBIN 30.2 pg (26.0-34.0); MEAN CORPUSCULAR HGB CONC 33.2 G/dL (31.0-37.0); MEAN CORPUSCULAR VOLUME 91 fL (80-100); MONOCYTES # (AUTO) 1.1 K/uL (0.1-1.0); MONOCYTES % (AUTO) 6.9 % (2.0-9.0); NEUTROPHILS # (AUTO) 13.3 K/uL (1.8-7.7); NEUTROPHILS % (AUTO) 82.9 % (40.0-70.0); PLATELET COUNT (AUTO) 225 K/uL (150-450); RED BLOOD CELL COUNT(AUTO) 4.83 MIL/uL (4.50-5.90); RED CELL DISTRIBUTION WIDTH 13.6 % (11.5-14.5); WHITE BLOOD COUNT (AUTO) 16.1 K/uL (4.5-11.0)
[2023-08-31 17:07] LABS: ANION GAP 5 mmol/L (8-16); CALCIUM, TOTAL 8.9 mg/dL (8.8-10.5); CARBON DIOXIDE 31 mmol/L (22-29); CHLORIDE 104 mmol/L (98-107); GLOMERULAR FILTR. RATE CALC > 60 mL/min (>60); GLUCOSE,RANDOM 84 mg/dL (70-110); POTASSIUM 4.1 mmol/L (3.5-5.1); SODIUM SERUM 140 mmol/L (136-145); UREA NITROGEN, BLOOD 11 mg/dL (7-18)
[2023-08-31 17:16] LABS: ALCOHOL, BLOOD (SERUM) < 3 mg/dL (0-10)
[2023-08-31] MEDS: SODIUM CHLORIDE 0.9% 1,000 ML IV ONE (18:40)
[2023-08-31 18:53] LABS: PH,URINE DRUG SCREEN 6.5 (5.0-8.0)
[2023-08-31 19:10] LABS: ALCOHOL, URINE DRUG SCREEN NEGATIVE (NEGATIVE); AMPHET/METH SCREEN,URINE NEGATIVE (NEGATIVE); BARBITURATE SCREEN, URINE NEGATIVE (NEGATIVE); BENZODIAZEPINES SCREEN,URINE NEGATIVE (NEGATIVE); CANNABINOID SCREEN,URINE POSITIVE (NEGATIVE); COCAINE SCREEN,URINE NEGATIVE (NEGATIVE); METHADONE SCREEN, URINE NEGATIVE (NEGATIVE); OPIATE SCREEN,URINE NEGATIVE (NEGATIVE); PHENCYCLIDINE SCREEN,URINE NEGATIVE (NEGATIVE)
[2023-08-31 21:25] VITALS: BP 128/76; PULSE 87; RESP 20
== END 2023-08-31 21:30 | disposition home or self-care (01) ==
LOC: EMS 16:06
DX: F16.10 Hallucinogen abuse, uncomplicated (principal); F12.90 Cannabis use, unspecified, uncomplicated; Z79.899 Other long term (current) drug therapy
CPT/HCPCS: 99284; 96360; 80048; 85025; 36415; 93005; 80307; G0480; J7030

== ENCOUNTER 2024-08-18 10:33 | Emergency (ER) | payer OTHER ==
[~2024-08-18] VITALS: Ht 182.9 cm; Wt 68.2 kg
[~2024-08-18 10:33] MED LIST changes: +OMEP-148 PO; -OMEP20 PO
[2024-08-18 10:34] VITALS: TEMP 98.1
[2024-08-18] MEDS ORDERED: DEXT20CA4 PO (10:38)
[2024-08-18] MEDS ORDERED: IBUP-2077 PO (10:38)
[2024-08-18] MEDS ORDERED: OLAN5TAB77 PO (10:38)
[2024-08-18] MEDS ORDERED: CHOL400T56 PO (10:38)
[2024-08-18 10:46] VITALS: BP 128/85; PULSE 98; RESP 20; O2SAT 99
[2024-08-18] MEDS: ACETAMINOPHEN 500 MG TABLET PO ONE (11:09)
[2024-08-18] MEDS: IBUPROFEN 600 MG TABLET PO ONE (11:09)
[2024-08-18] MEDS: BACITRACIN 0.9 GM PACKET OINTMENT TP ONE (11:09)
[2024-08-18] MEDS: LIDOCAINE 1% 10 ML VIAL SQ ONE (11:09)
[2024-08-18] MEDS ORDERED: IBUP-1554 PO (11:40)
[2024-08-18] MEDS ORDERED: BACI28.410 TP (11:40)
[2024-08-18] MEDS ORDERED: ACET-66 PO (11:40)
== END 2024-08-18 12:02 | disposition home or self-care (01) ==
LOC: EMS 10:36
DX: S61.210A Laceration without foreign body of right index finger without damage to nail, initial encounter (principal); F41.9 Anxiety disorder, unspecified; F31.9 Bipolar disorder, unspecified; F95.2 Tourette's disorder; F12.90 Cannabis use, unspecified, uncomplicated; Z72.89 Other problems related to lifestyle; Z79.899 Other long term (current) drug therapy; W45.8XXA Other foreign body or object entering through skin, initial encounter; Y93.E8 Activity, other personal hygiene; Y92.89 Other specified places as the place of occurrence of the external cause; Y99.8 Other external cause status
CPT/HCPCS: 99283; 12002; J3490; 99284

== ENCOUNTER 2024-08-19 20:51 | Emergency (ER) | payer OTHER ==
[~2024-08-19] VITALS: Ht 182.9 cm; Wt 65.5 kg
[~2024-08-19 20:51] MED LIST changes: +ACET-66 PO; +BACI28.410 TP; +CHOL400T56 PO; +DEXT20CA4 PO; +IBUP-1554 PO; +IBUP-2077 PO; +OLAN5TAB77 PO; -OMEP-148 PO; -RISP3TAB35 PO
[2024-08-19 21:13] VITALS: TEMP 98.1
[2024-08-19 22:23] VITALS: BP 132/70; PULSE 78; RESP 18; O2SAT 98
== END 2024-08-19 22:30 | disposition home or self-care (01) ==
LOC: EMS 20:52
DX: Z48.00 Encounter for change or removal of nonsurgical wound dressing (principal); F12.90 Cannabis use, unspecified, uncomplicated; F31.9 Bipolar disorder, unspecified; F17.210 Nicotine dependence, cigarettes, uncomplicated
CPT/HCPCS: 99281; Z7502

== ENCOUNTER 2024-09-02 10:56 | Emergency (ER) | payer OTHER ==
[~2024-09-02] VITALS: Ht 182.9 cm; Wt 65.5 kg
[2024-09-02 10:58] VITALS: BP 115/49; PULSE 76; RESP 18; TEMP 97.9; O2SAT 99
[2024-09-02] MEDS: BACITRACIN 0.9 GM PACKET OINTMENT TP ONE (11:27)
== END 2024-09-02 11:56 | disposition home or self-care (01) ==
LOC: EMS 10:56
DX: S61.210D Laceration without foreign body of right index finger without damage to nail, subsequent encounter (principal); F31.9 Bipolar disorder, unspecified; F41.9 Anxiety disorder, unspecified; F17.210 Nicotine dependence, cigarettes, uncomplicated; F12.90 Cannabis use, unspecified, uncomplicated; Z79.899 Other long term (current) drug therapy; X58.XXXD Exposure to other specified factors, subsequent encounter
CPT/HCPCS: 99282; Z7502; Z7610